=== PATIENT | male | born 1975 | race Caucasian/White ===

== ENCOUNTER 2025-02-18 14:40 | Emergency (ER) | payer BC, OTHER ==
[~2025-02-18 14:40] MED LIST: Sodium Chloride 0.9% 10 ML Syringe FLUSH PRN
[2025-02-18 14:48] LABS: BASOPHILS PERCENT AUTO 0.2 % (0.0-1.0); EOSINOPHILS PERCENT AUTO 1.4 % (1.0-3.0); LYMPHOCYTES PERCENT AUTO 34.0 % (20.5-50.1); MONOCYTES PERCENT AUTO 12.8 % (2-8); NEUTROPHILS PERCENT AUTO 51.6 % (42.2-75.2); PLATELET COUNT,PLT 204 10^3/uL (150-450); RED BLOOD CELL COUNT 3.89 10^6/uL (4.6-6.2); WHITE BLOOD CELL COUNT,WBC 5.6 10^3/uL (5.0-10.0)
[2025-02-18 15:08] LABS: INR 1.0 (0.9-1.2); PTT,PARTIAL THROMBOPLSTIN TIME 25.2 SEC (22.0-34.0)
[2025-02-18 15:14] LABS: A/G RATIO 0.91; ALANINE AMINOTRANSFERASE,ALT 28 U/L (16-63); ASPARTATE AMNIOTRANSFERASE,AST 29 U/L (15-37); BILIRUBIN TOTAL 0.5 mg/dL (0.2-1.0); BLOOD UREA NITROGEN,BUN 19 mg/dL (7-18); CARBON DIOXIDE,CO2 25 mmol/L (21-32); CHLORIDE,CL 106 mmol/L (98-107); CREATININE 1.39 mg/dL (0.70-1.30); ESTIMATED GFR 63 mL/min (>=60); GLUCOSE RANDOM 146 mg/dL (70-99); LACTIC ACID 0.9 mmol/L (0.4-2.0); POTASSIUM,K 4.0 mmol/L (3.5-5.1); PROTEIN TOTAL,TP 6.7 g/dL (6.4-8.2); SODIUM,NA 138 mmol/L (136-145)
== END 2025-02-18 17:38 | disposition home or self-care (01) ==
LOC: DL.ED 14:40
DX: R07.89 Other chest pain (principal); Z87.891 Personal history of nicotine dependence
CPT/HCPCS: 36415; 71045; 80053; 83605; 83735; 84484; 85025; 85610; 85730; 93005; 93010; 99284; 99285